=== PATIENT | female | born 1995 | race Caucasian/White ===

== ENCOUNTER 2018-02-12 10:16 | Emergency (ER) | payer MEDICAID, OTHER | END 2018-02-12 10:37 | disposition home or self-care (01) | LOC: FTE 10:16 | DX: S16.1XXA Strain of muscle, fascia and tendon at neck level, initial encounter (principal); S39.92XA Unspecified injury of lower back, initial encounter; V49.40XA Driver injured in collision with unspecified motor vehicles in traffic accident, initial encounter | CPT/HCPCS: 99283; Z7502 ==